=== PATIENT | male | born 1935 | race Caucasian/White ===

== ENCOUNTER → 2017-05-25 | Outpatient (CLI) | payer OTHER, BC ==
[~2017-05-25] MED LIST: ACTOS45 MG PO; ADVAIR 250/501 DISK IH; AFLURIA 2045 MCG/014 IM; AMIODARONE HCL200 MG PO; AMLODIPINE BESY10 MG PO; APLISOL5 TUB UNIT ID; ATORVASTATIN CA40 MG PO; AVODART0.5 MG PO; BENZONATATE200 MG PO; CALAZIME TP; COUMADIN,JANTOVE5 MG PO; COUMADIN5 MG PO; DIAPER RASH TP; DIGOXIN125 MCG PO; EXTRA STRENGTH500 M1 PO; FENOFIBRATE145 M1 PO; FENOFIBRATE160 M1 PO; FLUOROURACIL40 GM TP; FUROSEMIDE40 MG PO; IPRATR-ALBUTEROL3 ML IH; KLOR-CON M2020 MEQ PO; LIPITOR40 MG PO; LISINOPRIL10 MG PO; LO-DOSE ASPIRIN81 M2 PO; METOPROLOL SUCC25 MG PO; MONTELUKAST SOD10 MG PO; MUCINEX600 MG PO; NEXIUM40 MG PO; NORVASC10 M1 PO; PACERONE200 MG PO; PAIN RELIEF EX500 MG PO; PAROXETINE HCL20 MG PO; PAXIL20 MG PO; PNEUMOVAX 230.5 ML SC; POLYETHYLENE GL17 GM PO; PRINIVIL10 MG PO; PROTONIX40 MG PO; SERTRALINE HCL25 MG PO; SINGULAIR10 MG PO; SPIRIVA1 INHALATI IH; TAMSULOSIN HCL0.4 MG PO; TRICOR145 MG PO; VENTOLIN HFA18 GM IH; VITAMIN D35000 UNIT PO; WARFARIN SODIUM2 MG PO; ZOLOFT50 MG PO; warfarin
== END | disposition home or self-care (01) ==
LOC: NUC 13:12
DX: R06.00 Dyspnea, unspecified (principal)
CPT/HCPCS: 78582; A9540; A9567